=== PATIENT | male | born 1985 | race Caucasian/White ===

== ENCOUNTER 2021-09-21 15:22 | Outpatient (REF) | payer OTHER, SELFPAY | END 2021-09-21 15:23 | disposition home or self-care (01) | LOC: HO.LAB 15:22 | PROVIDERS: PCP Pediatrics; Visit Provider Psychiatry & Neurology Neurology | DX: G40.909 Epilepsy, unspecified, not intractable, without status epilepticus (principal); Z79.899 Other long term (current) drug therapy | CPT/HCPCS: 36415; 80164 ==

== ENCOUNTER 2022-08-14 08:30 | Outpatient (RCR) | payer OTHER, SELFPAY ==
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
[2022-07-27 12:17] VITALS: BP 100/62; PULSE 96; TEMP 36.3
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
[2022-07-27 14:14] LABS: Amphetamine Screen Urine Not Detected (Not Detect); Barbiturates, Urine Not Detected (Not Detect); Benzodiazepines Screen Urine Not Detected (Not Detect); Cannabinoid Screen Urine POSITIVE (Not Detect); Cocaine Screen Urine Not Detected (Not Detect); Fentanyl, urine Not Detected (Not Detect); Opiate Screen Urine Not Detected (Not Detect); Phencyclidine Screen Urine Not Detected (Not Detect)
--- NOTE | 2022-07-30 14:13 | PC.NURSE ---
Spoke to [facility] pharmacy for the second time, called last Saturday as well to reconcile patient medication list. Awaiting a faxed list of medications from the pharmacy.
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
--- NOTE | 2022-08-02 11:57 | HO.PHPIOP ---
Case opened in treatment team.
--- NOTE | 2022-08-03 13:07 | HO.PHPIOP ---
After meeting with pt, on his behalf (at his request), I called and had staff email a message for his therapist to pls call me. Staff said they can only email, and cannot access the therapists' phone numbers. Pt said his therapist informed him she will have someone call him regarding getting into low income housing. He said hes been on the list for many years, and is struggling living with his mother and sister and sister's boyfriend.
--- NOTE | 2022-08-07 09:59 | HO.PHPPROGNO ---
Subjective Subjective Date of Service: 08/07/22 Reason For Visit: PTSD,depression Medical Problems Affecting Mental Status: No Interim History: Less depressed, continues with anxiety, although managable. No SI, no safety concerns. Maintains abstinence, no concerns regarding substance use. Has upcoming medical appointments next several days. No concerns regarding medications. Feels program is helpful, says has been able to open up. Medication Compliance: Yes Side effects from medications: No Attending Groups: Yes Review of Systems Acute medical concerns: No Medical Review of Systems: unchanged Review of Systems Review of Systems Yes all other systems are reviewed and are negative Constitutional: Reports no additional constitutional complaints Mental Status Exam Mental Status Exam Narrative: NAD. No SI/HI, no AH/VH. Feels safe. ? Patient Appearance: Appropriate Patient Orientation: Person, Place, Time and Situation Level of Consciousness: Appropriate and Alert Patient Behavior: Appropriate, Cooperative and Good Eye Contact Mood Description: Depressed (improving) and Anxious Affect Description: Depressed (less) and Anxious Patient Cognition Impaired: No Ability to Follow Directions: Good Speech Pattern: Clear and Appropriate Memory Description: Normal for Patient (since tbi in 2012) Hallucinations: None Delusions: Not Present Thought Process: Intact Thought Content: positive for Intact Depressive Symptoms: Increased Anxiety, Difficulty Sleeping, Loss of Int. in Activity, Feelings of Guilt and Low Self Esteem Judgement: Fair Assessment & Plan Assessment & Plan (1) Opioid use disorder, severe, on maintenance therapy, dependence: Status: Acute Code(s): F11.20 - Opioid dependence, uncomplicated Assessment and Plan: Less depressed. Some anxiety. Concerned about upcoming court date regarding sisters stay away order. Hopes that it goes well. No SI, no safety concerns. Maintains abstinence, no concerns regarding substance use. Continues with current methadone dose, no concerns. Has upcoming medical appointments next several days. Will be out Saturday and due to procedure. No concerns regarding medications. Overall satisfied with current medication regimen, although plans to discuss with outpatient provider trazodone for sleep, as he does not feel overall it is effective. Feels program is helpful, says has been able to open up. (2) Post-traumatic stress disorder, unspecified: Status: Acute Code(s): F43.10 - Post-traumatic stress disorder, unspecified (3) Cocaine dependence, uncomplicated: Status: Acute Code(s): F14.20 - Cocaine dependence, uncomplicated Assessment and Plan: Continues abstinence, no concerns. (4) Major depressive disorder, recurrent severe without psychotic features: Status: Acute Code(s): F33.2 - Major depressive disorder, recurrent severe without psychotic features Plan 1. Continue with current [facility] plan of care. 2. Continue with medications as prescribed. 3. Follow-up as per protocol. Patient educated on: diagnosis, medication risk/benefits, substance abuse and therapeutic strategies Informed Consent: understands Reason for contiued partial hosp. stay Substantial Risk for: inability to function, rapid decompensation and med/psych decompensation Certification I certify that partial hospital treatment is medically necessary due to the symptoms and problems resulting from the patient's mental illness and the failure to treat the patient at the partial hospital level of care would likely result in the patient requiring inpatient psychiatric care which could not be prevented at a less intensive level of care. Total time managing care of this patient today __20__ minutes. Discharge Plan Discharge Attending provider: Michael Mtz Medications: New nicotine (polacrilex) [Nicorette] 2 mg gum 2 mg buccal Q2H PRN (Reason: nicotine cravings) Qty: 110 0RF No Action atorvastatin 40 mg tablet 1 tab PO DAILY paroxetine HCl 10 mg tablet 1 tab PO DAILY clonazepam 1 mg tablet 1 tab PO TID gabapentin 800 mg tablet 800 mg PO BID pantoprazole 40 mg tablet,delayed release (DR/EC) 1 tab PO DAILY clonidine HCl 0.1 mg tablet 1 tab PO BID diltiazem HCl 180 mg capsule,extended release 24 hr 1 cap PO DAILY divalproex 500 mg tablet,delayed release (DR/EC) 1,000 mg PO BID methadone [Methadose] 10 mg/mL Concentrate 19 mg PO DAILY paroxetine HCl 40 mg tablet 1 tab PO DAILY Trulicity 1.5 mg/0.5 mL pen injector subcut DIRECTED Rx Instructions: Weekly hydralazine 10 mg tablet 1 tab PO TID fenofibrate micronized 134 mg capsule 1 cap PO DAILY ferrous sulfate [FeroSul] 325 mg (65 mg iron) tablet 325 mg PO DAILY levetiracetam 750 mg tablet 2 tab PO BID insulin glargine [Lantus Solostar U-100 Insulin] 100 unit/mL (3 mL) insulin pen 22 unit subcut BEDTIME lisinopril 20 mg tablet 1 tab PO DAILY magnesium oxide 400 mg (241.3 mg magnesium) tablet 1 tab PO DAILY trazodone 100 mg tablet 1 tab PO BEDTIME warfarin 5 mg tablet 5 mg PO DAILY mirtazapine 45 mg tablet 1 tab PO BEDTIME calcium carbonate 500 mg calcium (1,250 mg) tablet,chewable 500 mg PO DAILY metformin 500 mg tablet extended release 24 hr 2 tab PO BID cholecalciferol (vitamin D3) 50 mcg (2,000 unit) tablet 1 tab PO DAILY
--- NOTE | 2022-08-14 15:56 | HO.PHPPROGNO ---
Subjective Subjective Date of Service: 08/14/22 Reason For Visit: PTSD,depression Medical Problems Affecting Mental Status: No Interim History: Describes mood as ?pretty good?. Less depressed, less anxious. Has found program to be helpful. No SI/HI, no AH/VH. No safety concerns. Has decreased nicotine use, down to 3-4 cigarettes per day. Has new puppy, finds caring for her rewarding. Feels stable for discharge from [facility] at this time. Medication Compliance: Yes Side effects from medications: No Attending Groups: Yes Review of Systems Acute medical concerns: No Medical Review of Systems: unchanged Review of Systems Review of Systems Yes all other systems are reviewed and are negative Constitutional: Reports no additional constitutional complaints Mental Status Exam Mental Status Exam Narrative: NAD. No SI/HI, no AH/VH. Feels safe. ? Patient Appearance: Appropriate Patient Orientation: Person, Place, Time and Situation Level of Consciousness: Appropriate and Alert Patient Behavior: Appropriate, Cooperative and Good Eye Contact Mood Description: Depressed (less) and Anxious (improved) Affect Description: Appropriate and Flat Patient Cognition Impaired: No Ability to Follow Directions: Excellent Speech Pattern: Clear and Appropriate Memory Description: Normal for Patient (since tbi in 2012) Hallucinations: None Delusions: Not Present Thought Process: Intact Thought Content: positive for Intact Judgement: Good Assessment & Plan Assessment & Plan (1) Major depressive disorder, recurrent severe without psychotic features: Status: Acute Code(s): F33.2 - Major depressive disorder, recurrent severe without psychotic features Assessment and Plan: Describes mood as ?pretty good?. Less depressed, less anxious. Affect brightens upon approach, easily engageable. Has found program to be helpful. No SI/HI, no AH/VH. No safety concerns. Has decreased nicotine use, down to 3-4 cigarettes per day. Continues with Nicorette replacement therapy. Feels stable for discharge from [facility] at this time. Plans to attend for the [facility] in [place], has tour scheduled later this week, looking forward to this. (2) Post-traumatic stress disorder, unspecified: Status: Acute Code(s): F43.10 - Post-traumatic stress disorder, unspecified (3) Opioid use disorder, severe, on maintenance therapy, dependence: Status: Acute Code(s): F11.20 - Opioid dependence, uncomplicated Assessment and Plan: Remains abstinent, continues with methadone Clinic, with no concerns. (4) Cocaine dependence, uncomplicated: Status: Acute Code(s): F14.20 - Cocaine dependence, uncomplicated Assessment and Plan: Remains abstinent, no concerns. Plan 1. Patient appears stable for discharge from [facility] at this time. 2. Patient to follow-up with outpatient providers going forward. Patient educated on: diagnosis, medication risk/benefits, substance abuse and therapeutic strategies Informed Consent: understands Reason for contiued partial hosp. stay Substantial Risk for: stable for discharge Certification I certify that partial hospital treatment is medically necessary due to the symptoms and problems resulting from the patient's mental illness and the failure to treat the patient at the partial hospital level of care would likely result in the patient requiring inpatient psychiatric care which could not be prevented at a less intensive level of care. Total time managing care of this patient today ___20_ minutes. Discharge Plan Discharge Attending provider: Michael Mtz Medications: New nicotine (polacrilex) [Nicorette] 2 mg gum 2 mg buccal Q2H PRN (Reason: nicotine cravings) Qty: 110 0RF No Action atorvastatin 40 mg tablet 1 tab PO DAILY paroxetine HCl 10 mg tablet 1 tab PO DAILY clonazepam 1 mg tablet 1 tab PO TID gabapentin 800 mg tablet 800 mg PO BID pantoprazole 40 mg tablet,delayed release (DR/EC) 1 tab PO DAILY clonidine HCl 0.1 mg tablet 1 tab PO BID diltiazem HCl 180 mg capsule,extended release 24 hr 1 cap PO DAILY divalproex 500 mg tablet,delayed release (DR/EC) 1,000 mg PO BID methadone [Methadose] 10 mg/mL Concentrate 19 mg PO DAILY paroxetine HCl 40 mg tablet 1 tab PO DAILY Trulicity 1.5 mg/0.5 mL pen injector subcut DIRECTED Rx Instructions: Weekly hydralazine 10 mg tablet 1 tab PO TID fenofibrate micronized 134 mg capsule 1 cap PO DAILY ferrous sulfate [FeroSul] 325 mg (65 mg iron) tablet 325 mg PO DAILY levetiracetam 750 mg tablet 2 tab PO BID insulin glargine [Lantus Solostar U-100 Insulin] 100 unit/mL (3 mL) insulin pen 22 unit subcut BEDTIME lisinopril 20 mg tablet 1 tab PO DAILY magnesium oxide 400 mg (241.3 mg magnesium) tablet 1 tab PO DAILY trazodone 100 mg tablet 1 tab PO BEDTIME warfarin 5 mg tablet 5 mg PO DAILY mirtazapine 45 mg tablet 1 tab PO BEDTIME calcium carbonate 500 mg calcium (1,250 mg) tablet,chewable 500 mg PO DAILY metformin 500 mg tablet extended release 24 hr 2 tab PO BID cholecalciferol (vitamin D3) 50 mcg (2,000 unit) tablet 1 tab PO DAILY Stand Alone Forms: Patient Portal Discharge page Patient Education: Depression (DC), Post Traumatic Stress Disorder (DC)
== END 2022-08-14 23:59 | disposition home or self-care (01) ==
LOC: HO.PHPA 08:30
PROVIDERS: Nurse Practitioner Psychiatric/Mental Health; Visit Provider Psychiatry & Neurology Psychiatry
DX: F33.2 Major depressive disorder, recurrent severe without psychotic features (principal); F43.10 Post-traumatic stress disorder, unspecified; F11.20 Opioid dependence, uncomplicated; F14.20 Cocaine dependence, uncomplicated
CPT/HCPCS: 80307; 90791; 90853

== ENCOUNTER 2022-11-20 10:38 | Outpatient (REF) | payer OTHER, SELFPAY ==
[2022-11-20 12:16] LABS: Anion Gap 14 (12-20); Blood Urea Nitrogen 17 mg/dL (9-16); Calcium 9.6 mg/dL (8.4-10.2); Carbon Dioxide 25 mmol/L (22-29); Chloride 104 mmol/L (96-108); Estimated Glomerular Filt Rate > 60; Glucose Random 222 mg/dL (60-115); Potassium 4.9 mmol/L (3.3-5.1); Sodium 138 mmol/L (135-145)
[2022-11-25 16:04] LABS: Levetiracetam Keppra 34.8 mcg/mL (6.0-46.0)
== END 2022-11-20 10:39 | disposition home or self-care (01) ==
LOC: HO.LAB 10:38
PROVIDERS: PCP Internal Medicine; Visit Provider Psychiatry & Neurology Neurology
DX: G40.909 Epilepsy, unspecified, not intractable, without status epilepticus (principal); Z79.899 Other long term (current) drug therapy
CPT/HCPCS: 36415; 80048; 80164; 80177

== ENCOUNTER 2022-12-07 09:41 | Outpatient (REF) | payer OTHER, SELFPAY ==
--- NOTE | ~2022-12-07 | CT_ITS ---
EXAMINATION: CT HEAD WITHOUT AND WITH CONTRAST CLINICAL INFORMATION: Seizures. COMPARISON: None. TECHNIQUE: Contiguous axial imaging was performed from the skullbase to vertex without and with intravenous administration of 85 mL Omnipaque 350. This CT examination was performed using dose optimization techniques as appropriate, variously including the following: *Automated exposure control *Adjustment of mA and/or kV according to patient size (this includes techniques or standardized protocols for targeted exams where dose is matched to indication/reason for exam; i.e. extremities or head) *Use of iterative reconstruction technique DLP: 2001 mGy-cm. FINDINGS: There is extensive chronic encephalomalacia in the right cerebral hemisphere with volume loss and ex vacuo dilatation of the right lateral ventricle. Right hemispheric post cranioplasty changes noted. There is a rightward shift of midline structures due to right cerebral hemispheric volume loss. There is no evidence of acute intracranial hemorrhage or territorial infarction. No abnormal mass effect is seen. No extra-axial fluid collections are identified. There is no pathologic enhancement identified. Focal area of chronic encephalomalacia also noted in the posteroinferior right cingulate gyrus. No evidence of hydrocephalus. The remaining osseous structures and soft tissues are normal. The mastoid air cells are well aerated. There is a small retention cyst in the right maxillary antrum. CT/CT head/brain wo/w IV con IMPRESSION: No acute intracranial pathology. Extensive encephalomalacia and gliosis with volume loss in the right lqirhyp-tjqymnkz-dlnfuseb lobes with right-sided post cranioplasty changes. No abnormal enhancement.
[2022-12-07] MEDS: iohexoL 350 MG/ML 100 ML INFUS..BTL IV (11:08)
== END 2022-12-07 09:42 | disposition home or self-care (01) ==
LOC: HO.CT 09:41
PROVIDERS: PCP Internal Medicine; Visit Provider Psychiatry & Neurology Neurology
DX: G40.909 Epilepsy, unspecified, not intractable, without status epilepticus (principal)
CPT/HCPCS: 70470; Q9967

== ENCOUNTER 2024-06-09 07:25 | Outpatient (REF) | payer OTHER, SELFPAY ==
--- NOTE | ~2024-06-09 | CT_ITS ---
EXAMINATION: CT HEAD WITHOUT CONTRAST CLINICAL INFORMATION: Seizures. COMPARISON: CT head from 12/07/2022. TECHNIQUE: Contiguous axial imaging was performed from the skull base to vertex without intravenous administration of contrast. This CT examination was performed using dose optimization techniques as appropriate, variously including the following: *Automated exposure control. *Adjustment of mA and/or kV according to patient size (this includes techniques or standardized protocols for targeted exams where dose is matched to indication/reason for exam; i.e. extremities or head). *Use of iterative reconstruction technique. DLP: 85 mGy-cm FINDINGS: Changes of prior right hemispheric craniectomy/cranioplasty. There is chronic encephalomalacia of the right MCA territory (involving the lateral aspect of the right frontal, parietal, and temporal lobes as well as the right caudate and lentiform nuclei) with associated volume loss. There is also chronic encephalomalacia of the anterior-inferior right frontal lobe and parasagittal aspect of the left occipital lobe. No additional loss of larsen-white matter differentiation. No evidence of acute intracranial hemorrhage. A few foci of hypoattenuation in the periventricular and deep white matter are consistent with mild microangiopathy. Ex vacuo of the right lateral ventricle. Otherwise, the ventricles are normal in morphology and size. No evidence for obstructive hydrocephalus. No abnormal mass effect or midline shift. No extra-axial fluid collections. No acute soft tissue or osseous abnormalities. Mild mucosal thickening of the paranasal sinuses. The mastoid air cells and middle ear cavities are clear. CT/CT head/brain wo IV con IMPRESSION: 1. No evidence of acute intracranial hemorrhage or edematous territorial infarction. 2. Changes of prior right hemispheric craniectomy/cranioplasty. Chronic encephalomalacia of the right MCA territory, right frontal lobe, and left occipital lobe. Electronically signed by: Tera Benitez DO 06/09/2024 08:50 PM EST
== END 2024-06-09 07:26 | disposition home or self-care (01) ==
LOC: HO.CT 07:25
PROVIDERS: PCP Internal Medicine; Visit Provider Registered Nurse
DX: R56.9 Unspecified convulsions (principal); S06.0X9A Concussion with loss of consciousness of unspecified duration, initial encounter
CPT/HCPCS: 70450

== ENCOUNTER 2025-02-19 09:21 | Outpatient (AMB) | payer OTHER, SELFPAY ==
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
--- OUTSIDE RECORDS SUMMARY | 2025-02-19 09:35 | XMS_ITS | Encounter Summary ---
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 Name Role Phone Unavailable Primary Care Provider Unavailabl e Reason for Visit * Reason Onset Date Comments appt change 11/28/2022 Encounter Details Date Type Department Care Team (Late st Contact Info) Description 11/28/2022 Telephone [facility] [address], [place] [phone] Judy Leonard, BDS [address] [place], [place] [phone] appt change Social History Tobacco Use Types Packs/Day Years Used Date Smoking Tobacco: Every Day Cigarettes Smokeless Tobacco: Never Sex and Gender Information Value Date Recorded Sex Assigned at Male 05/07/2022 10:32 AM EDT Legal Sex Male 10:32 AM EDT Gender Identity Male 05/07/2022 10:32 AM EDT Sexual Orientation Straight 05/07/2022 10 :32 AM EDT COVID-19 Exposure Response Date Recorded In the last 10 days, have yo u been in contact with someone who was confirmed or suspected to have Coronavirus/COVID-19? No / Unsure 11/26/2022 4:04 PM EDT documented as of this encounter Miscellaneous Notes * Telephone Encounter - Chayito Sharpe - 11/28/2022 11:16 AM EDT Patient has an appt on 12/13 but his coumadin appt is not until 12/24 at 9am. He would need the appt changed so that he can have his coumadin check prior to visit. We cannot schedule out that far at the [facility]. Please reach out to patient for rescheduling documented in this encounter Plan of Treatment Not on file documented as of this encounter Visit Diagnoses Not on filedocumented in this encounter
--- OUTSIDE RECORDS SUMMARY | 2025-02-19 09:35 | XMS_ITS | Clinical Summary ---
Author Organization [facility] Address [address] [place] [address] Care Team Providers Care Sales Management Intern Name Role Phone Aleks Dejesus MD Primary Care Provider [phone] Allergies Active Allergy Reactions Criticality Noted Date Comments Prednisone 07/18/2022 Medications Medication Sig Dispensed Refills Start Date End Date Status METHADONE HCL PO Take 20 mg by mouth daily. 0 Active clonazePAM (KlonoPIN) 0.25 mg split tablet Take 2 split tablet (0.5 mg total) by mouth 3 (three) times a day as needed for anxiety. 0 Active traZODone (DESYREL) 100 MG tablet Take 1 tablet (100 mg total) by mouth every night at bedtime. 0 Active mirtazapine (REMERON) 45 MG tablet Take 1 tablet (45 mg total) by mouth every night at bedtime. 0 Active fluticasone (FLONASE) 50 MCG/ACT nasal spray spray/apply 1 spray in each nostril daily. 0 Active divalproex (DEPAKOTE) [address] tablet Take 1 tablet (500 mg total) by mouth 3 (three) times a day. 0 Active gabapentin (NEURONTIN) 800 MG tablet Take 1 tablet (800 mg total) by mouth 3 (three) times a day. 0 Active ondansetron (ZOFRAN-ODT) 4 MG disintegrating tablet Take 1 tablet (4 mg total) by mouth every 8 (eight) hours as needed for nausea. 0 Active levETIRAcetam (KEPPRA) 500 MG tablet Take 3 tablets (1,500 mg total) by mouth 2 (two) times a day. 0 Active PARoxetine (PAXIL) 10 MG tablet Take 1 tablet (10 mg total) by mouth every morning. 0 Active calcium carbonate (TUMS) 500 MG chewable tablet Chew 1 tablet (500 mg total) by mouth daily. 0 Active insulin NPH (HumuLIN N,NovoLIN N) injection 100 units/mL Inject 20 Units under the skin. 0 Active insulin glargine (LANTUS) injection 100 units/mL Inject under the skin every night at bedtime. 0 Active vitamin D3 (cholecalciferol) 25 MCG (1000 UT) tablet Take 2 tablets (50 mcg total) by mouth daily. 0 Active cloNIDine (CATAPRES) tablet 0.1 mg Take 1 tablet (0.1 mg total) by mouth 2 (two) times a day. 0 Active ascorbic acid (VITAMIN C) 500 MG tablet Take 1 tablet (500 mg total) by mouth daily. 0 Active PARoxetine (PAXIL) 40 MG tablet Take 1 tablet (40 mg total) by mouth every night at bedtime. 0 Active pantoprazole (PROTONIX) 40 MG tablet Take 1 tablet (40 mg total) by mouth every morning on an empty stomach. 0 Active metFORMIN (GLUCOPHAGE) tablet 500 mg Take 1 tablet (500 mg total) by mouth 2 (two) times a day with meals. 0 Active lisinopril (PRINIVIL,ZESTRIL) tablet 20 mg Take 1 tablet (20 mg total) by mouth daily. 0 Active hydrALAZINE (APRESOLINE) 10 MG tablet Take 1 tablet (10 mg total) by mouth 3 (three) times a day. 0 Active ferrous sulfate 325 (65 FE) MG tablet Take 1 tablet (325 mg total) by mouth every morning with breakfast. 0 Active fenofibrate micronized (LOFIBRA) 134 MG capsule Take 1 capsule (134 mg total) by mouth every morning before breakfast. 0 Active dilTIAZem (TIAZAC) 180 MG 24 hr capsule Take 1 capsule (180 mg total) by mouth daily. 0 Active atorvastatin (LIPITOR) tablet 40 mg Take 1 tablet (40 mg total) by mouth daily. 0 Active dulaglutide (TRULICITY) 3 MG/0.5ML subcutaneous pen-injector Inject 0.5 mL (3 mg total) under the skin once a week. 0 Active Active Problems No known active problems Social History Tobacco Use Types Packs/Day Years Used Date Smoking Tobacco: Every Day Cigarettes Smokeless Tobacco: Current Tobacco Cessation:Ready to Q uit: Not Asked; Counseling Given: Not Answered Alcohol Use Standard Drinks/Week Comments Not Currently 0 (1 standard drink = 0.6 oz pur e alcohol) Sex and Gender Information Value Date Recorded Sex Assigned at Not on file Gender Identity Not on file Sexual Orientation Not on file Job Start Date Occupation Industry Not on file Not on file Not on file Last Filed Vital Signs Vital Sign Reading Time Taken Comments Blood Pressure 101/65 07/18/2022 2:32 PM EST Pulse 82 07/18/2022 2:32 PM EST Temperature 36.6 C (97.9 F) 07/18/2022 2:32 PM EST Respiratory Rate - - Oxygen Saturation 92% 07/18/2022 2:32 PM EST Inhaled Oxygen Concentration - - Weight 119.9 kg (264 lb 6.4 oz) 07/18/2022 2:32 PM EST Height 175.3 cm (5' 9 ) 07/18/2022 2:32 PM EST Body Mass Index 39.05 07/18/2022 2:32 PM EST Plan of Treatment Health Maintenance Due Date Last Done Comments Hepatitis B Vaccines (1 of 3 - 3-dose series) 1985 Hepatitis C Screening 1985 COVID-19 Vaccine (#1) 1985 Depression Screening 1997 Preventative Health Evaluation 2003 DTap / Tdap / Td (2 - Tdap) 11/18/201511/05, 07/08/2002 Pneumococcal Vaccine (2 of 2 - PCV) 07/09/2017 07/09/2016, 11/17/2015 Influenza Vaccine (#1) 2025 8, 03/18/2017, 07/09/2016 RSV Ped < 20 months Aged Out No longe r eligible based on patient's age to complete this topic Care Teams Sales Management Intern Relationship Specialty Start Date End Date Aleks Dejesus MD [address] [place] [id number] PCP - General Hospitalist Medicine 05/01/22
== END 2025-02-19 09:54 | disposition home or self-care (01) ==
LOC: HO.HSM 09:21
PROVIDERS: PCP Internal Medicine; Visit Provider Registered Nurse
DX: G40.909 Epilepsy, unspecified, not intractable, without status epilepticus (principal); Z98.890 Other specified postprocedural states
CPT/HCPCS: 99214

== ENCOUNTER → 2025-02-19 09:21 | Outpatient (BNVA) | payer OTHER, SELFPAY | PROVIDERS: PCP Internal Medicine; Visit Provider Registered Nurse | DX: G40.909 Epilepsy, unspecified, not intractable, without status epilepticus (principal) | CPT/HCPCS: 99212 ==